=== PATIENT | female | born 1980 | race Caucasian/White ===

== ENCOUNTER 2023-06-01 21:13 | Emergency (ER) | payer MEDICAID ==
[~2023-06-01] VITALS: Ht 157 cm; Wt 99.7 kg
[~2023-06-01 21:13] MED LIST: ALBU17AE23; DULO60CA6; LRT10T; MONT10TA21; RANI25TA; TRAM50TA2 PO
--- NOTE | 2023-06-01 21:18 | ED General ---
General Chief Complaint: Glucose Problems History of Present Illness Date Seen by Provider: Jun 01, 2023 Time Seen by Provider: 21:17 Initial Comments 42-year-old female with PMH of diabetes mellitus type 2 and asthma, is here with complaints of high blood sugar in 498 at home. Patient has not been taking her metformin for the past 1 month because she ran out and did not have a refill. Patient has been noticing that she has polyuria, polydipsia for the past 2 to 3 weeks. Denies recent illness, fever and chills, nausea and vomiting, diarrhea, chest pain, palpitations, shortness of breath, lethargy. Allergies and Home Medications Allergies Coded Allergies: influenza virus vacc,specific (Unverified Allergy, Unknown, 10/07/14) Patient Home Medication List Home Medication List Reviewed: Yes Albuterol (Ventolin) 17 Gm Aerosol, (Reported) Entered as Reported by: SANGEETA REYES on 05/20/092054 Duloxetine Hcl (Cymbalta) 60 Mg Capsule.dr, (Reported) Entered as Reported by: SANGEETA REYES on 05/20/092054 Loratadine (Claritin) 10 Mg Tab, (Reported) Entered as Reported by: SANGEETA REYES on 05/20/092054 Montelukast Sodium (Singulair) 10 Mg Tablet, (Reported) Entered as Reported by: SANGEETA REYES on 05/20/092054 Ranitidine Hcl (Zantac 25) 25 Mg Tablet.eff, (Reported) Entered as Reported by: SANGEETA REYES on 05/20/092055 Tramadol Hcl (Tramadol Hcl) 50 Mg Tablet, 50 MG PO Q4H PRN for PAIN Prescribed by: AMBAR AWAD on 10/07/142026 Review of Systems Review of Systems Constitutional: see HPI EENTM: no symptoms reported Respiratory: no symptoms reported Cardiovascular: no symptoms reported Gastrointestinal: no symptoms reported Genitourinary: no symptoms reported Musculoskeletal: no symptoms reported Skin: no symptoms reported Past Yhcdgcw-Wfyhyc-Khddma Hx Immunizations Up To Date Tetanus Booster (TDap): More than 5yrs Family Medical History No Pertinent Family Hx Physical Exam Vital Signs Vital Signs - First Documented 06/01/23 21:13 Temp 36.4 Pulse 87 Resp 18 B/P (MAP) 157/96 (116) Pulse Ox 98 O2 Delivery Room Air Capillary Refill : Height, Weight, BMI Height: 5'2" Weight: 220lbs. oz. 99.049520db; BMI Method:Estimated General Appearance: No Apparent Distress, WD/WN HEENT: PERRL/EOMI Neck: Full Range of Motion Respiratory: Lungs Clear Cardiovascular: Regular Rate, Rhythm Gastrointestinal: Normal Bowel Sounds, Non Tender, Soft Back: No CVA Tenderness Neurologic/Psychiatric: Alert, Oriented x3, No Motor/Sensory Deficits, Normal Mood/Affect Skin: Normal Color Progress/Results/Core Measures Suspected Sepsis SIRS Temperature: Pulse: Respiratory Rate: Laboratory Tests 06/01/23 21:17: White Blood Count 8.1 Blood Pressure / Mean: Laboratory Tests 06/01/23 21:17: Creatinine 0.68, Platelet Count 254, Total Bilirubin 0.3 Results/Orders Lab Results Laboratory Tests Test 06/01/23 21:17 06/01/23 21:34 06/01/23 22:02 Range/Units White Blood Count 8.1 4.3-11.0 10^3/uL Red Blood Count 4.50 3.80-5.11 10^6/uL Hemoglobin 13.4 11.5-16.0 g/dL Hematocrit 42 35-52 % Mean Corpuscular Volume 93 80-99 fL Mean Corpuscular Hemoglobin 30 25-34 pg Mean Corpuscular Hemoglobin Concent 32 32-36 g/dL Red Cell Distribution Width 13.6 10.0-14.5 % Platelet Count 254 130-400 10^3/uL Mean Platelet Volume 10.5 9.0-12.2 fL Immature Granulocyte % (Auto) 1 % Neutrophils (%) (Auto) 50 42-75 % Lymphocytes (%) (Auto) 41 12-44 % Monocytes (%) (Auto) 6 0-12 % Eosinophils (%) (Auto) 3 0-10 % Basophils (%) (Auto) 0 0-10 % Neutrophils # (Auto) 4.0 1.8-7.8 10^3/uL Lymphocytes # (Auto) 3.3 1.0-4.0 10^3/uL Monocytes # (Auto) 0.5 0.0-1.0 10^3/uL Eosinophils # (Auto) 0.2 0.0-0.3 10^3/uL Basophils # (Auto) 0.0 0.0-0.1 10^3/uL Immature Granulocyte # (Auto) 0.0 0.0-0.1 10^3/uL Sodium Level 137 135-145 MMOL/L Potassium Level 4.0 3.6-5.0 MMOL/L Chloride Level 99 98-107 MMOL/L Carbon Dioxide Level 25 21-32 MMOL/L Anion Gap 13 5-14 MMOL/L Blood Urea Nitrogen 12 7-18 MG/DL Creatinine 0.68 0.60-1.30 MG/DL Estimat Glomerular Filtration Rate 111 BUN/Creatinine Ratio 18 Glucose Level 423 *H 70-105 MG/DL Glucometer 417 *H 393 H 70-110 MG/DL Calcium Level 9.3 8.5-10.1 MG/DL Corrected Calcium 9.5 8.5-10.1 MG/DL Magnesium Level 1.8 1.6-2.4 MG/DL Total Bilirubin 0.3 0.1-1.0 MG/DL Aspartate Amino Transf (AST/SGOT) 36 H 5-34 U/L Alanine Aminotransferase (ALT/SGPT) 40 0-55 U/L Alkaline Phosphatase 112 40-136 U/L Troponin I < 0.30 <0.30 NG/ML Total Protein 7.4 6.4-8.2 GM/DL Albumin 3.8 3.2-4.5 GM/DL Urine Color RED H Urine Clarity CLOUDY Urine pH 7.5 5-9 Urine Specific [place] 1.015 L 1.016-1.022 Urine Protein TRACE H NEGATIVE Urine Glucose (UA) 3+ H NEGATIVE Urine Ketones NEGATIVE NEGATIVE Urine Nitrite NEGATIVE NEGATIVE Urine Bilirubin NEGATIVE NEGATIVE Urine Urobilinogen 0.2 < = 1.0 MG/DL Urine Leukocyte Esterase NEGATIVE NEGATIVE Urine RBC (Auto) 2+ H NEGATIVE Urine RBC TNTC H /HPF Urine WBC 2-5 /HPF Urine Squamous Epithelial Cells 2-5 /HPF Urine Crystals NONE /LPF Urine Bacteria MODERATE H /HPF Urine Casts NONE /LPF Urine Mucus NEGATIVE /LPF Urine Culture Indicated NO Urine Opiates Screen NEGATIVE NEGATIVE Urine Oxycodone Screen NEGATIVE NEGATIVE Urine Methadone Screen NEGATIVE NEGATIVE Urine Barbiturates Screen NEGATIVE NEGATIVE Ur Tricyclic Antidepressants Screen NEGATIVE NEGATIVE Urine Phencyclidine Screen NEGATIVE NEGATIVE Urine Amphetamines Screen NEGATIVE NEGATIVE Urine Methamphetamines Screen NEGATIVE NEGATIVE Urine Benzodiazepines Screen NEGATIVE NEGATIVE Urine Cocaine Screen NEGATIVE NEGATIVE Urine Cannabinoids Screen NEGATIVE NEGATIVE My Orders Orders - GABRIEL THRASHER MD Cbc And Automated Diff (06/01/23 21:18) Comprehensive Metabolic Panel (06/01/23 21:18) Drug Screen Stat (Urine) (06/01/23 21:18) Magnesium (06/01/23 21:18) Ua Culture If Indicated (06/01/23 21:18) Troponin I Fs (06/01/23 21:18) Ed Iv/Invasive Line Start (06/01/23 21:19) Ns Iv 1000 Ml (Ns Iv 1000 Ml) (06/01/23 21:30) Insulin (Regular) Per Unit (Insulin (Reg (06/01/23 21:19) Chest 1 View Ap/Pa Only (06/01/23 21:22) Vital Signs/I&O 06/01/23 06/01/23 21:13 21:13 Temp 36.4 Pulse 87 Resp 18 B/P (MAP) 157/96 (116) Pulse Ox 98 O2 Delivery Room Air Room Air Capillary Refill : Progress Note : Progress Note 1. HYPERGLYCEMIA: - FIngerstick has been improving. At home it was 498 and slowly improving, 420 - Regular insulin 5units given in ER - Pt has not taken Metformin for one month. Pt is not on home insulin. - CBC/ CMP: normal - UA is negative for ketones or infection - Refill prescription given for Metformin 1000mg bid for 10 days. Pt will need to follow up with PCP for further medication refills and health assessment. - Take home pack of Zofran for nausea and vomiting, given. -The patient was seen in the ED, and treated appropriately to presentation at a specific point in time. Patient is informed that there is a possibility that disease and illness can evolve and change in acuity rapidly or slowly after patient is discharged from the ER. Precautionary advice given to the patient for immediate return to ER if symptoms worsen or do not resolve, and to seek emergency care sooner rather than later. Pt also advised on the importance of PCP follow up and compliance with management and follow up plan with PCP and/or specialist, as this is part of the management plan. Pt verbally expressed understanding. . Departure Impression Primary Impression: Hyperglycemia Disposition: 01 HOME, SELF-CARE Condition: Improved Departure-Patient Inst. Referrals: [facility] (PCP/Family) Primary Care Physician Patient Instructions: Diabetes and diet, High Blood Sugar, Adult ED Add. Discharge Instructions: - Refill prescription given for Metformin 1000mg bid for 10 days. Pt will need to follow up with PCP for further medication refills and health assessment. - Take home pack of Zofran for nausea and vomiting, given. All discharge instructions reviewed with patient and/or family. Voiced understanding. Scripts Metformin HCl (Metformin HCl) 1,000 Mg Tablet 1000 MG PO BID for 10 Days, #20 TAB Prov: GABRIEL THRASHER MD 06/01/23 GABRIEL THRASHER MD Jun 01, 2023 21:18
[2023-06-01] MEDS ORDERED: inSUlin (REGULAR) HUMAN 1 UNIT/0.01 ML (CHARGE PER UNIT) SC STA (21:19)
[2023-06-01 21:24] LABS: BASOPHILS % (AUTO) 0 % (0-10); EOSINOPHILS # (AUTO) 0.2 10^3/uL (0.0-0.3); EOSINOPHILS % (AUTO) 3 % (0-10); HEMATOCRIT 42 % (35-52); HEMOGLOBIN 13.4 g/dL (11.5-16.0); LYMPHOCYTES # (AUTO) 3.3 10^3/uL (1.0-4.0); LYMPHOCYTES % (AUTO) 41 % (12-44); MEAN CORPUSCULAR HEMOGLOBIN 30 pg (25-34); MEAN CORPUSCULAR HGB CONC 32 g/dL (32-36); MEAN CORPUSCULAR VOLUME 93 fL (80-99); MEAN PLATELET VOLUME 10.5 fL (9.0-12.2); MONOCYTES # (AUTO) 0.5 10^3/uL (0.0-1.0); MONOCYTES % (AUTO) 6 % (0-12); NEUTROPHILS % (AUTO) 50 % (42-75); PLATELET COUNT 254 10^3/uL (130-400); WHITE BLOOD COUNT 8.1 10^3/uL (4.3-11.0)
[2023-06-01] MEDS ORDERED: NS IV 1000 ML 1,000 ML IV SCH (21:30)
[2023-06-01 21:41] LABS: BILIRUBIN,URINE NEGATIVE (NEGATIVE); CLARITY,URINE CLOUDY; COLOR,URINE RED; GLUCOSE, URINE (UA) 3+ (NEGATIVE); KETONES,URINE NEGATIVE (NEGATIVE); LEUKOCYTE ESTERASE ,URINE NEGATIVE (NEGATIVE); NITRITE,URINE NEGATIVE (NEGATIVE); PH,URINE 7.5 (5-9); PROTEIN,URINE TRACE (NEGATIVE)
[2023-06-01 21:46] LABS: BACTERIA,URINE MODERATE /HPF; RBC,URINE TNTC /HPF
[2023-06-01 21:48] LABS: BUN/CREATININE RATIO 18; CARBON DIOXIDE 25 MMOL/L (21-32); CHLORIDE 99 MMOL/L (98-107); CREATININE SERUM 0.68 MG/DL (0.60-1.30); GFR ESTIMATED 111; SODIUM 137 MMOL/L (135-145)
[2023-06-01 21:49] LABS: ALANINE AMINOTRANSFERASE 40 U/L (0-55); ALBUMIN 3.8 GM/DL (3.2-4.5); ALKALINE PHOSPHATASE 112 U/L (40-136); BILIRUBIN,TOTAL 0.3 MG/DL (0.1-1.0); CALCIUM 9.3 MG/DL (8.5-10.1); MAGNESIUM 1.8 MG/DL (1.6-2.4); TOTAL PROTEIN 7.4 GM/DL (6.4-8.2)
[2023-06-01 21:50] LABS: GLUCOSE 423 MG/DL (70-105)
[2023-06-01 21:51] LABS: AMPHETAMINE SCREEN, URINE NEGATIVE (NEGATIVE); BARBITURATE SCREEN URINE NEGATIVE (NEGATIVE); CANNABINOID SCREEN, URINE NEGATIVE (NEGATIVE); COCAINE SCREEN URINE NEGATIVE (NEGATIVE); METHADONE STAT NEGATIVE (NEGATIVE); OPIATE SCREEN URINE NEGATIVE (NEGATIVE); OXYCODONE STAT NEGATIVE (NEGATIVE); TRICYCLIC ANTIDEPRESSANTS SCRE NEGATIVE (NEGATIVE)
--- NOTE | 2023-06-01 21:55 | Diagnostic Imaging Report ---
INDICATION: 42-year-old female with chest pain, hyperglycemia. COMPARISON: None. FINDINGS: Single view chest shows normal heart, pleura and diaphragms. No consolidation is seen. There is no effusion or pneumothorax. Film is underpenetrated. Soft tissues and bony thorax are unremarkable. IMPRESSION: No acute cardiopulmonary change. Dictated by: Dictated on workstation # [id number]
[2023-06-01] MEDS ORDERED: RX-ONDANSETRON 4 MG ODT (ZOFRAN) PPK #4 PO PRN (23:00)
[2023-06-01] MEDS ORDERED: METF-399 PO (23:01)
[2023-06-01 23:05] VITALS: BP 119/92
[2023-06-01] MEDS ORDERED: RX-ONDANSETRON 4 MG ODT (ZOFRAN) PPK #4 ONE (23:07)
== END 2023-06-01 23:05 | disposition home or self-care (01) ==
LOC: EDUNIT# 21:13 → ER FS 21:15
DX: E11.65 Type 2 diabetes mellitus with hyperglycemia (principal)
CPT/HCPCS: 36415; 71045; 80053; 80306; 81000; 82947; 83735; 84484; 85025